=== PATIENT | male | born 1955 | race Caucasian/White ===

== ENCOUNTER 2018-04-29 14:16 | Emergency (ER) | payer MEDICARE, SELFPAY ==
[2018-04-29 14:17] VITALS: BP 130/80; PULSE 72; RESP 16; TEMP 36.7; O2SAT 100; BMI 22.9
--- NOTE | 2018-04-29 14:34 | CT_ITS ---
STUDY: CT ABDOMEN AND PELVIS WITH CONTRAST REASON FOR EXAM: Male, 63 years old. Lower abdominal pain x3 weeks RADIATION DOSAGE (If Supplied By Facility): CTDIvol = ( 16.17 ) mGy, DLP = ( 672.48 ) mGycm TECHNIQUE: Transaxial images were obtained from the dome of the diaphragm to the symphysis pubis without oral contrast. 100mL ml of Isovue 300 contrast was administered. Sagittal and coronal images were reconstructed. Individualized dose optimization techniques were used for this CT. COMPARISON: None. FINDINGS: The visualized lung bases are unremarkable. The visualized portions of the heart are within normal limits. Liver somewhat nodular. Gallbladder surgically absent. Severe splenomegaly. Normal pancreas. Normal bilateral adrenal glands. Normal right kidney. Normal left kidney. Normal visualized stomach. Normal small intestine. There is increased stool throughout the colon. Multiple air-fluid levels are noted in the colon. The stomach and small bowel are filled with contrast. The appendix is not identified. Normal abdominal aorta. Normal inferior vena cava. Normal retroperitoneum. Normal urinary bladder. There is a left inguinal hernia containing only vessels. The vessels appear somewhat prominent as compared with the right side. Normal osseous structures. CT/Abdomen/Pelvis WITH Contrast IMPRESSION: Increased stool and nonspecific diarrheal disease. Cirrhosis and splenomegaly. No ascites. Left inguinal hernia with prominent vessels or varicosities. Electronically Signed: Curtis Cruz MD at 16:52 EST , Service support ,
[2018-04-29] MEDS: 0.9% Normal Saline 1,000 ML 1000 ML IV (15:00)
[2018-04-29] MEDS: Morphine 4 MG/ML Syringe IV (15:01)
[2018-04-29] MEDS: Ondansetron 4 MG/2 ML Vial IV (15:01)
--- NOTE | 2018-04-29 15:12 | ED.RN ---
STOOL SAMPLE COMPLETELY FORMED, MO DIARRHEA AT THIS TIME. AWARE.
[2018-04-29 15:14] LABS: Absolute Lymphocyte Count 2.58 X10^3/ul (0.83-4.51); Absolute Neutrophil Count 4.2 X10^3/uL (2.0-7.7); Basophil# 0.03 X10^3/uL; Basophil% 0.4 % (0-1); Eosinophil# 0.22 X10^3/uL; Eosinophils% 2.8 % (0-5); Hematocrit 40.8 % (40-54); Hemoglobin 14.2 g/dl (13.0-16.5); Lymphocyte # 2.58 X10^3/ul (4.0); Lymphocyte % 32.3 % (19-41); Mean Corp Hgb Conc 34.8 g/gl (32-36); Mean Corpuscular Hgb 30.4 pg (27.0-32.0); Mean Corpuscular Volume 87.4 fL (80-94); Mean Platelet Vol. 10.7 fl (6.2-12.0); Monocyte# 0.94 X10^3/uL; Monocyte% 11.8 % (0-10); Neutrophil % 52.6 % (47-70); POSITIVE COUNT NO; POSITIVE DIFFERENTIAL NO; POSITIVE MORPHOLOGY NO; Platelet Count 102 K/mm3 (150-450); RBC Distribution Width CV 14.3 % (11.6-14.6); RBC Distribution Width SD 45.8 fl (35.1-43.9); Red Blood Count 4.67 M/mm3 (4.6-6.2)
[2018-04-29 15:18] VITALS: BP 141/88; PULSE 71; RESP 16; TEMP 37.2; O2SAT 99
[2018-04-29 15:20] LABS: Anion Gap 5 (5-15); BUN 11 mg/dL (7-18); BUN/Creat Ratio 12.9 RATIO (10-20); Calcium,Total 8.4 mg/dL (8.5-10.1); Chloride 109 mmol/L (98-107); Creatinine, Serum 0.85 mg/dL (0.70-1.30); EST Glomerular Filtration Rate 96 mL/min (>60); Est Glom Filt Rate - Afr Amer 116 mL/min (>60); Estimated Creatinine Clearance 93.94 ml/min; Glucose 65 mg/dL (74-106); Potassium 3.7 mmol/L (3.5-5.1); Sodium Level 142 mmol/L (136-145)
--- NOTE | 2018-04-29 15:49 | ED.VISSUMM ---
- ER Visit Summary Date of Service: 04/29/18 Chief Complaint: [Diarrhea] History of Present Illness: The patient is a 63 M [presents the emergency department complaint of diarrhea for 3 weeks. Patient states initially he started with what he thought was stomach flu and that he had vomiting and diarrhea. Patient also was treated for bronchitis and just finished amoxicillin 1 week ago. Patient had also been on steroids at that time. Patient continues to have watery stool anywhere from 5-10 times a day. Patient denies any blood in his stool. Patient has prior history of hep C but he states he has been cured from. Patient also has history of dysautonomia. He denies any fevers. He does describe diffuse abdominal discomfort and cramping. Patient describes large amount of gas and foul-smelling gas.] Physical Examination: [HEENT-PERRLA, EOMI. Cranial nerves II through XII grossly intact. TMs clear. Mucous membranes moist. No adenopathy. Cardiovascular-regular rate and rhythm without murmur or ectopy Lungs-clear to auscultation, chest wall stable without crepitus or subcu emphysema Abdomen-normoactive bowel sounds, soft. Patient has diffuse tenderness palpation. There is no rebound, rigidity, or perineal signs. Extremities-intact ?4, normal range of motion, normal pulses, atraumatic] Test Results: [CBC with differential obtained showed a white count of 8.0, hemoglobin 14, hematocrit 41, platelets 102. Chemistries unremarkable. CT scan of the abdomen pelvis ordered and pending. Lactate pending.] Patient also had stool cultures as well as C. difficile and enteric pathogens ordered. Emergency Department Course and Treatment: [Was given a liter normal same fluid bolus as well as morphine 4 mg IV and Zofran 4 mg IV] Treatment Plan: [Pending CT results.] CARE patient will be turned over to evening physician awaiting results and CT results. Disposition: [Pending] Impression: [Diarrhea Abdominal pain] This note was generated with [employer] dictation software. It may contain incorrect words, spelling, and punctuation that were not noted in review of the chart prior to signing ED Disposition - Plan for ED Patient: Chief Complaint: Diarrhea Referrals: [facility] [Primary Care Provider] -
[2018-04-29 15:51] LABS: Lactic Acid 1.3 mmol/L (0.4-2.0)
[2018-04-29 16:00] VITALS: PULSE 71; RESP 16; TEMP 37.2; O2SAT 99
--- NOTE | 2018-04-29 16:44 | ED.RN ---
[facility] CALLED FROM THE LAB. DR GOMEZ AWARE
[2018-04-29 17:00] VITALS: PULSE 78; RESP 16; TEMP 36.6; O2SAT 99
--- NOTE | 2018-04-29 17:31 | ED.VISSUMM ---
- ER Visit Summary Date of Service: 04/29/18 Test Results: C. difficile toxin was positive. CT scan of the abdomen and pelvis showed some diarrhea but no evidence of obstruction or acute intra-abdominal process. Emergency Department Course and Treatment: Patient felt better on reevaluation. Patient was given a prescription for Flagyl. Patient was instructed to follow-up with his primary care physician in 5-7 days. Patient understood and was agreeable with the plan. All questions were answered. Disposition: Discharged home Impression: 1. Abdominal pain 2. Diarrhea 3. C. difficile colitis This note was generated with [employer] dictation software. It may contain incorrect words, spelling, and punctuation that were not noted in review of the chart prior to signing ED Disposition - Plan for ED Patient: Disposition: Home or Assisted Living Chief Complaint: Diarrhea Diagnosis: C. difficile colitis Instructions: ED Diarrhea Bacterial Prescriptions: Metronidazole [Flagyl] 500 mg PO Q8H 10 Days #30 tab Referrals: [facility] [Primary Care Provider] -
--- NOTE | 2018-04-29 17:35 | ED.DCSUM_ITS ---
- ER Visit Summary Date of Service: 04/29/18 Test Results: C. difficile toxin was positive. CT scan of the abdomen and pelvis showed some diarrhea but no evidence of obstruction or acute intra- abdominal process. Emergency Department Course and Treatment: Patient felt better on reevaluation. Patient was given a prescription for Flagyl. Patient was instructed to follow- up with his primary care physician in 5-7 days. Patient understood and was agreeable with the plan. All questions were answered. Disposition: Discharged home Impression: 1. Abdominal pain 2. Diarrhea 3. C. difficile colitis This note was generated with [employer] dictation software. It may contain incorrect words, spelling, and punctuation that were not noted in review of the chart prior to signing ED Disposition - Plan for ED Patient: Disposition: Home or Assisted Living Chief Complaint: Diarrhea Diagnosis: C. difficile colitis Instructions: ED Diarrhea Bacterial Prescriptions: Metronidazole [Flagyl] 500 mg PO Q8H 10 Days #30 tab Referrals: [facility] [Primary Care Provider] -
== END 2018-04-29 18:09 | disposition home or self-care (01) ==
PROVIDERS: Emergency Provider Emergency Medicine
DX: A04.72 Enterocolitis due to Clostridium difficile, not specified as recurrent (principal); R19.7 Diarrhea, unspecified; R10.9 Unspecified abdominal pain; Z86.19 Personal history of other infectious and parasitic diseases; Z72.0 Tobacco use
CPT/HCPCS: 74177; 80048; 83605; 85025; 87177; 87209; 87493; 87506; 96361; 96374; 96375; 99283; Q9967; A4216; J2405